=== PATIENT | male | born 2005 | race Caucasian/White ===

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

== ENCOUNTER 2024-11-30 14:28 | Emergency (ER) | payer SELFPAY ==
[~2024-11-30] VITALS: Ht 167.6 cm; Wt 81.6 kg
[~2024-11-30 14:28] MED LIST changes: +REGLAN10 M1 PO
[2024-11-30] MEDS ORDERED: Tdap Vaccine 0.5 ML SYR (Adult Vaccine) IM ONE (15:15)
[2024-11-30] MEDS ORDERED: CEPHALEXIN500 M1 PO (15:43)
[2024-11-30] MEDS ORDERED: Bacitracin Zinc 14 GM TUBE T ONE (15:45)
[2024-11-30] MEDS ORDERED: CEPHALEXIN 500 MG CAP PO ONE (15:45)
== END 2024-11-30 15:51 | disposition home or self-care (01) ==
LOC: ED 14:28
DX: S01.20XA Unspecified open wound of nose, initial encounter (principal); J45.909 Unspecified asthma, uncomplicated; W31.89XA Contact with other specified machinery, initial encounter; Y93.89 Activity, other specified; Y92.89 Other specified places as the place of occurrence of the external cause; Y99.8 Other external cause status